=== PATIENT | female | born 1975 ===

== ENCOUNTER 2019-11-05 06:16 | Inpatient (IN) | payer OTHER ==
[~2019-11-05 06:16] MED LIST: ACETAMINOPHEN 500 MG TAB PO SCH; BACITRACIN 50,000 UNIT VIAL IR ONE; BUPIVACAINE/PF (0.5%) 5 MG/1 ML 30 ML VIAL INFILTRATI ONE; CELECOXIB 200 MG CAP PO NR; GABAPENTIN 300 MG CAP PO NR; GELATIN SPONGE,ABSORBABLE 1 GM POWDER MM ONE; LACTATED RINGERS 1,000 ML IV SCH; LIDOCAINE 1%/EPINEPHRINE 1:100,000 VIAL (20 ML) INFILTRATI ONE; MIDAZOLAM 2 MG/2 ML INJ IV SCH; SCOPOLAMINE TRANSDERMAL PATCH 72 HR TD NR; SODIUM CHLORIDE 0.9% IRR 1,500 ML BOTTLE IR ONE; THROMBIN (RECOMBINANT) 5,000 UNIT VIAL TP ONE; TRIAMCINOLONE 40 MG/1 ML INJ IM ONE
[2019-11-05] MEDS ORDERED: BUPIVACAINE/PF (0.5%) 5 MG/1 ML 30 ML VIAL INFILTRATI ONE (09:50)
[2019-11-05] MEDS ORDERED: GELATIN SPONGE,ABSORBABLE 1 GM POWDER MM ONE (09:50)
[2019-11-05] MEDS ORDERED: LIDOCAINE 1%/EPINEPHRINE 1:100,000 VIAL (20 ML) INFILTRATI ONE (09:50)
[2019-11-05] MEDS ORDERED: SODIUM CHLORIDE P/F VIAL 10 ML 10 ML ONE ×2 (09:50→12:30)
[2019-11-05] MEDS ORDERED: BACITRACIN 50,000 UNIT VIAL ONE (09:51)
[2019-11-05] MEDS ORDERED: THROMBIN (RECOMBINANT) 5,000 UNIT VIAL TP ONE (09:51)
[2019-11-05 09:58] LABS: BUN/Creatinine Ratio 9; Blood Urea Nitrogen 7 mg/dL (7-17); Calcium 9.3 mg/dL (8.4-10.2); Hemolysis Index 10
[2019-11-05] MEDS ORDERED: SODIUM CHLORIDE 0.9% IRR 1,000 ML BOTTLE IR ONE (10:00)
[2019-11-05 10:54] LABS: Basophils # (Auto) 0.1 K/mm3 (0.0-0.1); Basophils % (Auto) 1.4 % (0.0-1.8); Eosinophils # (Auto) 0.2 K/mm3 (0.0-0.4); Eosinophils % (Auto) 2.3 % (0.0-4.3); Hematocrit 44.4 % (30.3-42.9); Hemoglobin 14.6 gm/dl (10.1-14.3); Lymphocytes # (Auto) 2.3 K/mm3 (1.2-5.4); Lymphocytes % (Auto) 25.1 % (13.4-35.0); Mean Corpuscular HGB Conc 33 % (30-34); Mean Corpuscular Volume 82 fl (79-97); Monocytes # (Auto) 0.8 K/mm3 (0.0-0.8); Monocytes % (Auto) 8.8 % (0.0-7.3); Platelet Count 250 K/mm3 (140-440); Red Blood Count 5.39 M/mm3 (3.65-5.03); Red Cell Distribution Width 14.1 % (13.2-15.2)
[2019-11-05] MEDS ORDERED: HYDROmorphone 1 MG/1 ML INJ IV PRN (11:00)
--- NOTE | 2019-11-05 11:01 | Anesthesia Day of Surgery ---
Anesthesia Day of Surgery - Day of Surgery Patient Examined: Yes Patient H&P Reviewed: Yes Patient is NPO: Yes
--- NOTE | 2019-11-05 11:01 | Anesthesia Consultation ---
Anesthesia Consult and Med Hx Date of service: 11/05/19 - Airway Anesthetic Teeth Evaluation: Poor, Partials ROM Head & Neck: Adequate Mental/Hyoid Distance: Inadequate Mallampati Class: Class III Intubation Access Assessment: Possibly Difficult - Pulmonary Exam CTA: Yes - Cardiac Exam Cardiac Exam: RRR - Pre-Operative Health Status ASA Pre-Surgery Classification: ASA2 Proposed Anesthetic Plan: General - Pulmonary Hx Smoking: Yes (1/2 PPD X 20 YRS) Hx Respiratory Symptoms: No Hx Sleep Apnea: No (YADI PRE SCREEN NEGATIVE) - Cardiovascular System Hx Hypertension: No Hx Heart Attack/AMI: No - Central Nervous System CVA: No Hx Back Pain: Yes (WITH PAIN/ WEAKNESS URIEL LEGS) - Gastrointestinal Hx Gastroesophageal Reflux Disease: No - Endocrine Hx Renal Disease: No Hx Liver Disease: No Hx Insulin Dependent Diabetes: No Hx Non-Insulin Dependent Diabetes: No Hx Thyroid Disease: No - Hematic Hx Anemia: No - Additional Comments Anesthesia Medical History Comments: No hx anesthetic complications.
[2019-11-05] MEDS ORDERED: SODIUM CHLORIDE 0.9% 250ML 250 ML ONE (11:39)
[2019-11-05] MEDS ORDERED: LIDOCAINE MPF (2%) 20 MG/1 ML VIAL 5 ML ONE (12:27)
[2019-11-05] MEDS ORDERED: SUCCINYLCHOLINE CHLORIDE 200 MG/10 ML INJ MDV ONE (12:27)
[2019-11-05] MEDS ORDERED: PROPOFOL 200 MG/20 ML VIAL IV ONE (12:27)
[2019-11-05] MEDS ORDERED: fentaNYL 100 MCG/2 ML INJ ONE (12:27)
[2019-11-05] MEDS ORDERED: KETAMINE 500 MG/5 ML VIAL MDV ONE (12:30)
[2019-11-05] MEDS ORDERED: dexAMETHasone 20 MG/5 ML VIAL ONE (13:30)
[2019-11-05] MEDS ORDERED: ONDANSETRON 4 MG/2 ML INJ ONE (13:30)
[2019-11-05] MEDS ORDERED: KETOROLAC 30 MG/1 ML INJ ONE (13:30)
[2019-11-05] MEDS ORDERED: ROCURONIUM 50 MG/5 ML INJ IV ONE (13:32)
[2019-11-05] MEDS ORDERED: HYDROmorphone 1 MG/1 ML INJ ONE (13:50)
[2019-11-05] MEDS ORDERED: PHENYLEPHRINE 10 MG/1 ML INJ SDV ONE ×2 (13:53→14:02)
[2019-11-05] MEDS ORDERED: LACTATED RINGERS 1,000 ML ONE ×2 (13:57→16:07)
[2019-11-05] MEDS ORDERED: ceFAZolin/STERILE WATER 2 GM/20 ML SYRINGE IV NR (14:00)
[2019-11-05] MEDS ORDERED: SODIUM CHLORIDE 0.9% 100 ML ONE (14:35)
[2019-11-05] MEDS ORDERED: TRIAMCINOLONE 40 MG/1 ML INJ ONE (16:15)
[2019-11-05] MEDS ORDERED: diphenhydrAMINE 25 MG CAP PO PRN (16:46)
[2019-11-05] MEDS ORDERED: NALOXONE 0.4 MG/1 ML INJ IV PRN ×3 (16:46→18:48)
[2019-11-05] MEDS ORDERED: ONDANSETRON 4 MG/2 ML INJ IV PRN (16:46)
[2019-11-05] MEDS ORDERED: MAGNESIUM HYDROXIDE (MOM) ORAL LIQD UDC PO PRN (16:46)
[2019-11-05] MEDS ORDERED: ACETAMINOPHEN 325 MG TAB PO PRN (16:46)
[2019-11-05] MEDS ORDERED: ZOLPIDEM 5 MG TAB PO PRN (16:46)
[2019-11-05] MEDS ORDERED: MORPHINE 4 MG/1 ML INJ IV PRN (16:46)
[2019-11-05] MEDS ORDERED: oxyCODONE /ACETAMINOPHEN 5-325MG TAB PO PRN (16:46)
[2019-11-05] MEDS ORDERED: CYCLOBENZAPRINE 10 MG TAB PO PRN (16:46)
--- NOTE | 2019-11-05 16:55 | Post Operative Note ---
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 Anesthesia: GETA Surgeon: REJI QUAN Estimated blood loss: 50-100ml Pathology: none Condition: stable Disposition: PACU
[2019-11-05] MEDS ORDERED: MORPHINE/NS 30 MG-30 ML PCA INJ IV SCH (17:00)
[2019-11-05] MEDS ORDERED: SODIUM CHLORIDE 0.9% 1000 ML 1,000 ML IV SCH (17:00)
--- NOTE | 2019-11-05 17:55 | XRay Report ---
INTRAOPERATIVE FLUOROSCOPY: LUMBAR SPINE 2 FLUOROSCOPIC IMAGES INDICATION / CLINICAL INFORMATION: LUMBAR STENOSIS (L3-4). TECHNIQUE: Intraoperative spot images were obtained during the procedure. FINDINGS: Transpedicular screws are noted at L3-4 on the right. Additional transpedicular screws, posterior cab les are seen at L4 through at least L5 with disc cages seen at L4-5 and L5-S1 levels Fluoroscopy Time: 2.2 minutes. Fluoroscopy Images: 2. Signer Name: Nikolay Lopez MD Signed: 11/05/2019 5:51 PM Workstation Name: [id number]
[2019-11-05] MEDS ORDERED: diphenhydrAMINE 50 MG/ML VIAL IV ONE (18:30)
[2019-11-05] MEDS ORDERED: diphenhydrAMINE 50 MG/ML VIAL ONE (18:36)
[2019-11-05] MEDS ORDERED: HYDROmorphone/NS 6 MG/30 ML PCA INJ IV SCH (19:00)
[2019-11-05] MEDS ORDERED: SODIUM CHLORIDE 0.9% 1000 ML 1,000 ML IV ONE (19:22)
[2019-11-05] MEDS ORDERED: GLYCOPYRROLATE 0.4 MG/2 ML INJ IV ONE (19:29)
[2019-11-05] MEDS ORDERED: GLYCOPYRROLATE 0.4 MG/2 ML INJ ONE (19:31)
[2019-11-06] MEDS ORDERED: SODIUM CHLORIDE 0.9% 500 ML 500 ML IV ONE (06:12)
[2019-11-06] MEDS: GABAPENTIN 300 MG CAP PO SCH ×3 (06:41→21:49)
[2019-11-06] MEDS: ceFAZolin/NS 1 GM/50 ML 1 GM/50 ML BAG IV SCH ×2 (08:08→11:44)
[2019-11-06] MEDS: KETOROLAC 30 MG/1 ML INJ IV PRN ×2 (11:42→23:23)
--- NOTE | 2019-11-06 15:38 | Progress Note ---
Subjective Date of service: 11/06/19 Principal diagnosis: Postop lumbar fusion Interval history: Pt seen and evaluated Doing well Pain under control BP stabilized with LOGISTICS PLANNER d/c AFVSS AAOx3 MAEW Dressing CDI LE motor 5/5 We will d/c ivf's and LOGISTICS PLANNER. Pain control. D/C plans for AM. Continue drain Objective - Vital Sign Vital Signs - 12hr 11/06/19 11/06/19 11/06/19 05:07 06:46 07:36 Temperature 97.8 F 97.3 F L Pulse Rate 43 L 48 L Respiratory 18 16 16 Rate Blood Pressure 91/44 Blood Pressure 93/59 [Right] O2 Sat by Pulse 97 99 Oximetry 11/06/19 11/06/19 12:00 12:12 Temperature 98.4 F Pulse Rate 58 L Respiratory 18 18 Rate Blood Pressure Blood Pressure 102/54 [Right] O2 Sat by Pulse 97 Oximetry - Laboratory Findings CBC and BMP: 11/05/19 10:40 11/05/19 09:30 Abnormal Lab Findings: Abnormal Labs 11/05/19 11/05/19 09:30 10:40 RBC 5.39 H Hgb 14.6 H Hct 44.4 H MCH 27 L [place] % (Auto) 8.8 H Carbon Dioxide 20 L Glucose 101 H
[2019-11-07] MEDS: GABAPENTIN 300 MG CAP PO SCH ×2 (06:07→06:09)
[2019-11-07 07:51] VITALS: BP 103/44
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
== END 2019-11-07 11:48 | disposition home or self-care (01) | DRG 460 ==
LOC: 3A 06:16 → 3B-SURG 23:16
PROVIDERS: ADMIT Neurological Surgery; ATTEND Neurological Surgery
PROC: 0SG0071 Fusion of Lumbar Vertebral Joint with Autologous Tissue Substitute, Posterior Approach, Posterior Column, Open Approach (ICD-10-PCS; principal; 2019-11-05)
PROC: 00NY0ZZ Release Lumbar Spinal Cord, Open Approach (ICD-10-PCS; 2019-11-05)
PROC: 4A11X4G Monitoring of Peripheral Nervous Electrical Activity, Intraoperative, External Approach (ICD-10-PCS; 2019-11-05)
DX: M48.062 Spinal stenosis, lumbar region with neurogenic claudication (principal); Z88.5 Allergy status to narcotic agent
CPT/HCPCS: 36415; 72100; 80048; 81025; 85025; 86850; 86900; 86901; G0378; A4649; J0330; J0690; J1100; J1170; J1200; J1885; J2250; J2270; J2370; J2405; J2704; J3010; J3301; J7030; J7040; J7050; J7120; L8699